=== PATIENT | male | born 1940 | race Caucasian/White ===

== ENCOUNTER 2023-06-24 12:00 | Day surgery (SDC) | payer MEDICARE ==
[2023-06-24] MEDS ORDERED: Lidocaine 1% PF 5 ML VIAL ONE (12:40)
[2023-06-24] MEDS ORDERED: LevoFLOXacin D5W 500 mg (100 mL) BAG ONE (12:40)
[2023-06-24] MEDS ORDERED: fentaNYL PF 100 MCG/2 ML SYRINGE ONE (12:40)
[2023-06-24] MEDS ORDERED: PROPOFOL 20 ML ONE (12:40)
[2023-06-24 12:43] LABS: Hematocrit 41.4 % (42.0-52.0); Manual Diff?? YES; Mean Corpuscular HGB CONC 33.8 g/dL (32.0-36.0); Mean Corpuscular Hemoglobin 30.5 pg (27.0-31.0); Mean Corpuscular Volume 90.2 fl (78.0-98.0); Mean Platelet Volume 10.5 fL (7.4-10.4); Platelet Count 143 10x3/uL (130-400); RBC Distribution Width 12.7 % (11.5-14.5); Red Blood Cell (RBC) Count 4.59 mill/uL (4.70-6.10); White Blood Cell (WBC) Count 4.5 10x3/uL (4.8-10.8)
[2023-06-24 12:47] LABS: Delete Auto Diff?? YES
[2023-06-24 12:58] LABS: Anion Gap 14 mmol/L (10-20); BUN (Urea Nitrogen) 22 mg/dL (8.4-25.7); Calc. Creatinine Clearance 0 mL/min (70-130); Calcium 9.6 mg/dL (7.8-10.44); Carbon Dioxide 22 mmol/L (23-31); Chloride 106 mmol/L (98-107); Estimated GFR 74; Glucose 146 mg/dL (83-110); Potassium 4.1 mmol/L (3.5-5.1); Sodium 138 mmol/L (136-145)
[2023-06-24] MEDS ORDERED: Famotidine/PF 20 mg/2ml Vial ONE (13:00)
[2023-06-24 13:09] LABS: CellaVision Operator ID LAB.KB; Eosinophils 3 % (0-10); Lymphocytes 26 % (21-51); Monocytes 7 % (0-10); Neutrophil 57 % (42-75); Platelet Adequacy Comment Platelets Normal; Polychromasia SLIGHT = 2-3 cells HPF (0-2); Reactive Lymphocytes 7 % (0-10); Total Cell Count 100
[2023-06-24] MEDS ORDERED: ePHEDrine Sulfate 50 MG/10 ML VIAL ONE (13:13)
[2023-06-24] MEDS ORDERED: Dexamethasone 4 mg/ml Vial ONE (13:13)
[2023-06-24] MEDS ORDERED: Ondansetron PF 4 MG/2 ML Vial ONE (13:42)
[2023-06-24 13:43] LABS: Prothrombin Time 13.1 sec (12.0-14.7)
== END 2023-06-24 15:25 | disposition home or self-care (01) ==
LOC: SDC 12:00
PROVIDERS: ATTEND Urology
PROC: 0T7D8ZZ Dilation of Urethra, Via Natural or Artificial Opening Endoscopic (ICD-10-PCS; principal; 2023-06-24)
PROC: 0T7D8ZZ Dilation of Urethra, Via Natural or Artificial Opening Endoscopic (ICD-10-PCS; 2023-06-24)
PROC: 0TCB8ZZ Extirpation of Matter from Bladder, Via Natural or Artificial Opening Endoscopic (ICD-10-PCS; 2023-06-24)
DX: R39.14 Feeling of incomplete bladder emptying (principal); N35.919 Unspecified urethral stricture, male, unspecified site; I10 Essential (primary) hypertension; E78.5 Hyperlipidemia, unspecified; I65.29 Occlusion and stenosis of unspecified carotid artery; E11.9 Type 2 diabetes mellitus without complications; Z98.1 Arthrodesis status; Z95.1 Presence of aortocoronary bypass graft; Z88.2 Allergy status to sulfonamides; Z79.899 Other long term (current) drug therapy
CPT/HCPCS: 80048; 82365; 85025; 85610; 85730; 88300; A4333; J1100; J1956; J2405; J2704; S0028

== ENCOUNTER 2023-09-23 23:10 | Inpatient (IN) | payer MEDICARE ==
[2023-09-24 02:48] LABS: Hematocrit 38.3 % (42.0-52.0); Hemoglobin 13.4 g/dL (14.0-18.0); Mean Corpuscular Hemoglobin 30.7 pg (27.0-31.0); Mean Corpuscular Volume 87.6 fL (78.0-98.0); Mean Platelet Volume 10.3 fL (7.4-10.4); Platelet Count 135 10x3/uL (130-400); RBC Distribution Width 12.9 % (11.5-14.5); Red Blood Cell (RBC) Count 4.37 mill/uL (4.70-6.10)
[2023-09-24 02:59] LABS: ALT (SGPT) 26 U/L (8-55); AST (SGOT) 27 U/L (5-34); Albumin 4.1 g/dL (3.4-4.8); Alkaline Phosphatase 48 U/L (40-110); Anion Gap 19 mmol/L (10-20); BUN (Urea Nitrogen) 24 mg/dL (8.4-25.7); Bilirubin, Total 0.4 mg/dL (0.2-1.2); Calc. Creatinine Clearance 0 mL/min (70-130); Carbon Dioxide 21 mmol/L (23-31); Chloride 104 mmol/L (98-107); Estimated GFR 78; Globulin 3.9 g/dL (2.4-3.5); Glucose 128 mg/dL (83-110); Potassium 4.2 mmol/L (3.5-5.1); Sodium 140 mmol/L (136-145)
[2023-09-24 03:10] LABS: Band 3 % (5-11); Eosinophils 3 % (0-10); Lymphocytes 24 % (21-51); Monocytes 13 % (0-10); Neutrophil 55 % (42-75); Platelet Adequacy Comment Platelets Normal; Polychromasia SLIGHT = 2-3 cells HPF (0-2); Reactive Lymphocytes 2 % (0-10)
[2023-09-24] MEDS ORDERED: Vancomycin 1 GM/200 ML (FROZEN) BAG ONE (03:13)
[2023-09-24 05:55] LABS: Lactic Acid 2.4 mmol/L (0.5-2.2)
[2023-09-24 06:00] VITALS: BMI 31.1
[2023-09-24] MEDS ORDERED: Ondansetron ODT 4 MG TAB PO PRN (07:46)
[2023-09-24] MEDS ORDERED: HumaLOG 300 UNITS/3 ML VIAL SC PRN (07:46)
[2023-09-24] MEDS ORDERED: Dextrose 50% Abboject 50 ML SYRINGE SLOW IVP PRN (07:46)
[2023-09-24] MEDS ORDERED: Acetaminophen 650 MG Suppository PR PRN (07:46)
[2023-09-24] MEDS ORDERED: Dextrose 5% in Water 1,000 ML IV PRN (07:46)
[2023-09-24] MEDS ORDERED: Senokot S 8.6-50 MG TAB PO PRN (07:46)
[2023-09-24] MEDS ORDERED: Glucagon 1 MG/ML KIT IM PRN (07:46)
[2023-09-24] MEDS ORDERED: Ondansetron PF 4 MG/2 ML Vial IVP PRN (07:46)
[2023-09-24] MEDS ORDERED: Acetaminophen 325 MG TAB PO PRN (07:46)
[2023-09-24] MEDS: Enoxaparin 40 MG (0.4 mL) SYRINGE SC SCH (08:29)
[2023-09-24] MEDS: Tamsulosin HCl 0.4 MG CAP PO SCH (08:29)
[2023-09-24] MEDS: Losartan 25 MG TAB PO SCH (08:29)
[2023-09-24] MEDS: Sodium Chloride 0.9% 1,000 ML IV SCH (08:30)
[2023-09-24] MEDS: CO Q-10 CAPSULE 100 MG PO SCH (08:30)
[2023-09-24] MEDS: Aspirin 81 mg Enteric Coated Tablet PO SCH (08:30)
[2023-09-24] MEDS ORDERED: traMADol HCl 50 MG TAB PO PRN (09:38)
[2023-09-24] MEDS: Vancomycin 1 GM in Premix 1 BAG IVPB SCH (12:34)
[2023-09-24 13:14] LABS: Lactic Acid 1.4 mmol/L (0.5-2.2)
[2023-09-24] MEDS ORDERED: Vancomycin 1 GM in Premix 1 BAG IVPB SCH (16:00)
[2023-09-24] MEDS: Atorvastatin Calcium 10 MG TAB PO SCH (19:23)
[2023-09-25] MEDS: HumaLOG 300 UNITS/3 ML VIAL SC PRN (05:41)
[2023-09-25 07:30] LABS: Anion Gap 13 mmol/L (10-20); BUN (Urea Nitrogen) 14 mg/dL (8.4-25.7); Calc. Creatinine Clearance 93 mL/min (70-130); Calcium 8.5 mg/dL (7.8-10.44); Carbon Dioxide 22 mmol/L (23-31); Chloride 109 mmol/L (98-107); Estimated GFR 87; Glucose 145 mg/dL (83-110); Potassium 3.7 mmol/L (3.5-5.1); Sodium 140 mmol/L (136-145)
[2023-09-25 07:41] LABS: Vancomycin, Random 16.4 ug/mL (See Comment)
[2023-09-25 07:52] LABS: Hematocrit 33.8 % (42.0-52.0); Hemoglobin 11.7 g/dL (14.0-18.0); Mean Corpuscular HGB CONC 34.6 g/dL (32.0-36.0); Mean Corpuscular Hemoglobin 30.7 pg (27.0-31.0); Mean Corpuscular Volume 88.7 fL (78.0-98.0); Mean Platelet Volume 9.9 fL (7.4-10.4); Platelet Count 117 10x3/uL (130-400); Red Blood Cell (RBC) Count 3.81 mill/uL (4.70-6.10)
[2023-09-25 09:13] LABS: Band 1 % (5-11); Eosinophils 4 % (0-10); Lymphocytes 44 % (21-51); Monocytes 13 % (0-10); Neutrophil 31 % (42-75); Platelet Adequacy Comment Platelets Decreased; RBC Morphology Within Normal Limits; Reactive Lymphocytes 7 % (0-10)
[2023-09-25] MEDS: Saccharomyces boulardii 250 MG CAP PO SCH (19:58)
[2023-09-26 06:03] LABS: Hematocrit 35.1 % (42.0-52.0); Hemoglobin 12.1 g/dL (14.0-18.0); Mean Corpuscular HGB CONC 34.5 g/dL (32.0-36.0); Mean Corpuscular Hemoglobin 31.3 pg (27.0-31.0); Mean Corpuscular Volume 90.9 fL (78.0-98.0); Mean Platelet Volume 10.3 fL (7.4-10.4); Platelet Count 123 10x3/uL (130-400); Red Blood Cell (RBC) Count 3.86 mill/uL (4.70-6.10)
[2023-09-26 06:18] LABS: Anion Gap 15 mmol/L (10-20); BUN (Urea Nitrogen) 16 mg/dL (8.4-25.7); Calc. Creatinine Clearance 83 mL/min (70-130); Calcium 8.9 mg/dL (7.8-10.44); Carbon Dioxide 21 mmol/L (23-31); Chloride 110 mmol/L (98-107); Estimated GFR 79; Glucose 139 mg/dL (83-110); Potassium 3.8 mmol/L (3.5-5.1); Sodium 142 mmol/L (136-145)
[2023-09-26 06:36] LABS: Band 2 % (5-11); Eosinophils 6 % (0-10); Lymphocytes 48 % (21-51); Monocytes 13 % (0-10); Myelocyte 1 % (0-0); Neutrophil 29 % (42-75); Platelet Adequacy Comment Platelets Decreased; RBC Morphology Within Normal Limits; Reactive Lymphocytes 2 % (0-10); Smudge Cells 5.9 %
[2023-09-26] MEDS: Ampicillin/Sulbactam 3 GM in Sodium Chloride 0.9% 100 ML IVPB SCH (18:10)
[2023-09-27 05:16] LABS: Hematocrit 36.7 % (42.0-52.0); Hemoglobin 12.7 g/dL (14.0-18.0); Mean Corpuscular HGB CONC 34.6 g/dL (32.0-36.0); Mean Corpuscular Hemoglobin 30.9 pg (27.0-31.0); Mean Corpuscular Volume 89.3 fL (78.0-98.0); Platelet Count 134 10x3/uL (130-400); RBC Distribution Width 12.9 % (11.5-14.5); Red Blood Cell (RBC) Count 4.11 mill/uL (4.70-6.10)
[2023-09-27 05:23] LABS: Vancomycin, Random 13.3 ug/mL (See Comment)
[2023-09-27 05:26] LABS: Anion Gap 15 mmol/L (10-20); BUN (Urea Nitrogen) 18 mg/dL (8.4-25.7); Calc. Creatinine Clearance 73 mL/min (70-130); Calcium 9.2 mg/dL (7.8-10.44); Carbon Dioxide 21 mmol/L (23-31); Chloride 108 mmol/L (98-107); Estimated GFR 69; Glucose 163 mg/dL (83-110); Potassium 3.9 mmol/L (3.5-5.1); Sodium 140 mmol/L (136-145)
[2023-09-27 05:43] LABS: Band 1 % (5-11); Eosinophils 13 % (0-10); Lymphocytes 36 % (21-51); Metamyelocyte 1 % (0-0); Monocytes 12 % (0-10); Neutrophil 35 % (42-75); Platelet Adequacy Comment Platelets Normal; RBC Morphology Within Normal Limits; Reactive Lymphocytes 1 % (0-10); Smudge Cells 10.8 %
[2023-09-28] MEDS: Ampicillin/Sulbactam 3 GM VIAL ONE (04:55)
[2023-09-28 07:07] LABS: Hematocrit 35.4 % (42.0-52.0); Hemoglobin 12.1 g/dL (14.0-18.0); Mean Corpuscular HGB CONC 34.2 g/dL (32.0-36.0); Mean Corpuscular Hemoglobin 30.8 pg (27.0-31.0); Mean Corpuscular Volume 90.1 fL (78.0-98.0); Mean Platelet Volume 10.2 fL (7.4-10.4); Platelet Count 122 10x3/uL (130-400); RBC Distribution Width 12.8 % (11.5-14.5); Red Blood Cell (RBC) Count 3.93 mill/uL (4.70-6.10)
[2023-09-28 07:30] LABS: Anion Gap 15 mmol/L (10-20); BUN (Urea Nitrogen) 24 mg/dL (8.4-25.7); Calc. Creatinine Clearance 82 mL/min (70-130); Carbon Dioxide 21 mmol/L (23-31); Chloride 110 mmol/L (98-107); Estimated GFR 78; Glucose 163 mg/dL (83-110); Sodium 142 mmol/L (136-145)
[2023-09-28 08:05] LABS: Band 7 % (5-11); Eosinophils 7 % (0-10); Large Platelets 5.6 % (0-5); Lymphocytes 28 % (21-51); Metamyelocyte 2 % (0-0); Monocytes 7 % (0-10); Neutrophil 46 % (42-75); Plasma Cells 1 % (0-0); Platelet Adequacy Comment Platelets Decreased; Polychromasia SLIGHT = 2-3 cells HPF (0-2)
[2023-09-28 08:15] LABS: CRP,High Sensitivity (Inhouse) 0.13 mg/dL (< or = 0.5)
[2023-09-29 11:46] VITALS: BP 149/79; TEMP 98
== END 2023-09-29 14:02 | disposition home or self-care (01) | DRG 872 ==
LOC: ERS 23:10 → T4-B 09-24 04:12 → OBSVTOIN 09-25 17:02
PROVIDERS: ADMIT Student in an Organized Health Care Education/Training Program; ATTEND Family Medicine
DX: A41.01 Sepsis due to Methicillin susceptible Staphylococcus aureus (principal); L03.115 Cellulitis of right lower limb; E87.20 Acidosis, unspecified; I10 Essential (primary) hypertension; E78.5 Hyperlipidemia, unspecified; E11.9 Type 2 diabetes mellitus without complications; L97.519 Non-pressure chronic ulcer of other part of right foot with unspecified severity; I25.10 Atherosclerotic heart disease of native coronary artery without angina pectoris; Z85.46 Personal history of malignant neoplasm of prostate; Z88.8 Allergy status to other drugs, medicaments and biological substances; Z88.2 Allergy status to sulfonamides; Z79.82 Long term (current) use of aspirin; Z79.84 Long term (current) use of oral hypoglycemic drugs; Z79.899 Other long term (current) drug therapy; Z95.1 Presence of aortocoronary bypass graft; Z92.3 Personal history of irradiation
CPT/HCPCS: 36415; 36416; 80048; 80053; 80202; 83605; 85025; 86141; 87040; 87070; 87077; 87081; 87186; 87205; 96365; 96372; 96376; 97139; G0378; J0295; J1650; J1815; J3370-JW; J3490; J7050

== ENCOUNTER 2024-04-25 07:35 | Emergency (ER) | payer MEDICARE ==
[2024-04-25 09:38] LABS: Bacteria/HPF None Seen HPF (None Seen); Bilirubin Negative (Negative); Blood, Urine Negative (Negative); CAUTI Indications for Culture Dysuria,urgency,freq; Clarity Clear (Clear); Glucose, Urine (Dipstick) Normal (Negative); Ketone, Urine Negative (Negative); Leukocyte Negative Leu/uL (Negative); Nitrite Negative (Negative); Protein, Urine (Dipstick) 30 mg/dL (Neg-Trace); RBC/HPF 0-3 HPF (0-3); Squamous Epithelial None Seen HPF (0-3); Urobilinogen Normal mg/dL (Less than 2); WBC/HPF 0-3 HPF (0-3); pH, Urine 5.5 (5.0-9.0)
[2024-04-25 09:55] LABS: Urine Culture Reflex No No
[2024-04-25 12:20] LABS: #Basophils Less than 0.03 10x3/uL (0.0-0.2); %Basophils 0.3 % (0.0-1.0); %Eosinophils 3.1 % (0.0-10.0); %Lymphocytes 30.8 % (21.0-51.0); %Monocytes 10.4 % (0.0-10.0); %Neutrophils 51.2 % (42.0-75.0); Hematocrit 36.4 % (42.0-52.0); Hemoglobin 12.5 g/dL (14.0-18.0); Mean Corpuscular HGB CONC 34.4 g/dL (32.0-36.0); Mean Corpuscular Hemoglobin 30.5 pg (27.0-31.0); Mean Corpuscular Volume 88.5 fL (78.0-98.0); Mean Platelet Volume 10.1 fL (7.4-10.4); Platelet Count 133 10x3/uL (130-400); Red Blood Cell (RBC) Count 4.17 mill/uL (4.70-6.10)
[2024-04-25 12:31] LABS: Anion Gap 15 mmol/L (10-20); BUN (Urea Nitrogen) 25 mg/dL (8.4-25.7); Calc. Creatinine Clearance 0 mL/min (70-130); Calcium 9.2 mg/dL (7.8-10.44); Carbon Dioxide 20 mmol/L (23-31); Chloride 110 mmol/L (98-107); Estimated GFR 87; Glucose 140 mg/dL (83-110); Potassium 4.5 mmol/L (3.5-5.1); Sodium 140 mmol/L (136-145)
== END 2024-04-25 16:55 ==
LOC: ERS 07:35
DX: S39.012A Strain of muscle, fascia and tendon of lower back, initial encounter (principal); M48.00 Spinal stenosis, site unspecified; R26.2 Difficulty in walking, not elsewhere classified; G89.29 Other chronic pain; I10 Essential (primary) hypertension; E11.9 Type 2 diabetes mellitus without complications; E78.5 Hyperlipidemia, unspecified; C61 Malignant neoplasm of prostate; X50.0XXA Overexertion from strenuous movement or load, initial encounter; Y93.89 Activity, other specified; Z95.1 Presence of aortocoronary bypass graft; Z79.82 Long term (current) use of aspirin; Z79.84 Long term (current) use of oral hypoglycemic drugs; Z79.899 Other long term (current) drug therapy
CPT/HCPCS: 36415; 72131; 80048; 81001; 85025